=== PATIENT | female | born 1975 | race Two or more races ===

== ENCOUNTER 2024-10-30 12:00 | Inpatient (IN) | payer MEDICAID, OTHER ==
[~2024-10-30] VITALS: Ht 152.4 cm; Wt 56.4 kg
--- NOTE | 2024-10-30 12:30 | ED.PDOC ---
GI ASSESSMENT HPI Comments 49 y/o F, presents to the ED for CC of blood in stool. Patient states, she has been experiencing blood in stool with associated pain upon having a bowel movement x2days. Patient reports, stool to be bright red in color. Patient denies abdominal pain, nausea, vomiting, fever, chills, or fatigue. No other associated symptoms, modifiers, recent injuries or sick contacts present at this time. 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 PROGRAM ADMINISTRATOR History: Denies all WELLNESS PROGRAM ADMINISTRATOR Hx Family History Family History: Unknown Social History Smoker: Non-Smoker Alcohol: Denies ETOH Use Drugs: Denies Drug Use Lives In: Home Constitutional: denies: chills, diaphoresis, fatigue, fever, malaise, sweats, weakness, others EENTM: denies: blurred vision, double vision, ear bleeding, ear discharge, ear drainage, ear pain, ear ringing, eye pain, eye redness, hearing loss, mouth pain, mouth swelling, nasal discharge, nose bleeding, nose congestion, nose pain, photophobia, tearing, throat pain, throat swelling, voice changes, others Respiratory: denies: cough, hemoptysis, orthopnea, SOB at rest, shortness of breath, SOB with excertion, stridor, wheezing, others Cardiovascular: denies: chest pain, dizzy spells, diaphoresis, Dyspnea on exertion, edema, irregular heart beat, left arm pain, lightheadedness, palpitations, PND, syncope, others Gastrointestinal: reports: blood streaked bowels; denies: abdomen distended, abdominal pain, constipated, diarrhea, dysphagia, difficulty swallowing, hematemesis, melena, nausea, poor appetite, poor fluid intake, rectal bleeding, rectal pain, vomiting, others Genitourinary: denies: abnormal vagina bleeding, burning, dyspareunia, dysuria, flank pain, frequency, hematuria, incontinence, pain, , vagina discharge, urgency, others Neurological: denies: dizziness, fainting, headache, left sided numbness, left sided weakness, numbness, paresthesia, pre-existing deficit, right sided numbness, right sided weakness, seizure, speech problems, tingling, tremors, weakness, others Musculoskeletal: denies: back pain, gout, joint pain, joint swelling, muscle pain, muscle stiffness, neck pain, others Integumetry: denies: bruises, change in color, change in hair/nails, dryness, laceration, lesions, lumps, rash, wounds, others Allergic/Immunocompromised: denies: Difficulty Healing, Frequent Infections, Hives, Itching, others Hematologic/Lymphatic: denies: anemia, blood clots, easy bleeding, easy bruising, swollen glands, others Endocrine: denies: excessive hunger, excessive sweating, excessive thirst, excessive urination, flushing, intolerance to cold, intolerance to heat, unexplained weight gain, unexplained weight loss, others Psychiatric: denies: anxiety, bipolar disorder, depression, hopeless, panic disorder, schizophrenia, sleepless, suicidal, others All Other Systems: Reviewed and Negative Physical Exam General Appearance: No Apparent Distress, Normal HEENT: Normal ENT Inspection, Pharynx Normal Neck: Full Range of Motion, Non-Tender, Normal, Normal Inspection Respiratory: Chest Non-Tender, Lungs Clear, No Accessory Muscle Use, No Respiratory Distress, Normal Breath Sounds Cardiovascular: No Edema, No Murmur, No Gallop, Normal Peripheral Pulses, Regular Rate/Rhythm Breast Exam: Deferred Gastrointestinal: No Organomegaly, Non Tender, No Pulsatile Mass, Normal Bowel Sounds, Soft Genitalia: Deferred Pelvic: Deferred Rectal: Deferred Extremities: No calf tenderness, Normal capillary refill, Normal inspection, Normal range of motion, Non-tender, No pedal edema Musculoskeletal : Apperance: Normal Neurologic: Alert, 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 Was a procedure done?: No GI differential Dx Differential Diagnosis: Constipation, Diverticular disease, Inflammatory BD, Other (hemorrhoids) X-Ray, Labs, Meds, VS Vital Signs Date Time Temp Pulse Resp B/P (MAP) Pulse Ox O2 Delivery O2 Flow Rate FiO2 10/30/24 13:35 98.7 68 16 103/63 (76) 99 98.7 10/30/24 13:35 68 16 99 Room Air 10/30/24 12:23 97.8 74 18 135/79 (97) 99 97.8 Lab Test 10/30/24 12:55 Range/Units White Blood Count 6.9 4.4-10.8 10^3/uL Red Blood Count 4.32 4.0-5.20 10^6/uL Hemoglobin 12.6 12.2-16.2 g/dL Hematocrit 37.4 36.0-46.0 % Mean Corpuscular Volume 86.6 80.0-100.0 fL Mean Corpuscular Hemoglobin 29.2 28.0-32.0 pg Mean Corpuscular Hemoglobin Concent 33.7 32.0-36.0 g/dL Red Cell Distribution Width 15.3 H 11.8-14.3 % Platelet Count 256 140-450 10^3/uL Mean Platelet Volume 10.1 6.9-10.8 fL Neutrophils (%) (Auto) 52.1 37.0-80.0 % Lymphocytes (%) (Auto) 40.8 10.0-50.0 % Monocytes (%) (Auto) 5.3 0.0-12.0 % Eosinophils (%) (Auto) 1.6 0.0-7.0 % Basophils (%) (Auto) 0.2 0.0-2.0 % Neutrophils # (Auto) 3.6 1.6-8.6 10 ^3/uL Lymphocytes # (Auto) 2.8 0.4-5.4 10 ^3/uL Monocytes # (Auto) 0.4 0-1.3 10 ^3/uL Eosinophils # (Auto) 0.1 0-0.8 10 ^3/uL Basophils # (Auto) 0 0-0.2 10 ^3/uL Nucleated Red Blood Cells 0.0 % Sodium Level 142 136-145 mmol/L Potassium Level 3.8 3.5-5.1 mmol/L Chloride Level 106 98-107 mmol/L Carbon Dioxide Level 28 20-31 mmol/L Anion Gap 8 5-15 Blood Urea Nitrogen 10 9-23 mg/dL Creatinine 0.87 0.550-1.02 mg/dL Glomerular Filtration Rate Calc 81 >90 mL/min BUN/Creatinine Ratio 11.5 10.0-20.0 Serum Glucose 86 74-106 mg/dL Calcium Level 10.3 8.7-10.4 mg/dL Time of 1ST Reevaluation: 12:50 Reevaluation 1ST: Unchanged Patient Education/Counseling: Diagnosis, Treatment Family Education/Counseling: No Family Present SEPSIS Sepsis Screen Physician Orders Ct Ab Pel With Iv Con Only (10/30/24 16:29) Cefazolin Ancef (10/30/24 18:00) Metronidazole Ivpb Flagyl (10/30/24 18:00) Vital Signs Date Time Temp Pulse Resp B/P (MAP) Pulse Ox O2 Delivery O2 Flow Rate FiO2 10/30/24 13:35 98.7 68 16 103/63 (76) 99 98.7 10/30/24 13:35 68 16 99 Room Air 10/30/24 12:23 97.8 74 18 135/79 (97) 99 97.8 Laboratory Tests Test 10/30/24 12:55 White Blood Count 6.9 10^3/uL (4.4-10.8) Departure 1 Departure Time of Disposition: 17:49 (Patient with bright red blood per rectum and CT scan concerning for proctocolitis. We will empirically cover patient with antibiotics admit patient further workup) Impression: Primary Impression: Bright red blood per rectum Additional Impression: Colitis Disposition: ADMITTED INPATIENT Admit to: Med Surg Condition: Serious Critical Care Note Critical Care Time?: No Stability Stability form required: No Heart Score Heart Score: Heart Score Response (Comments) Value History N/A 0 EKG N/A 0 Age N/A 0 Risk Factors N/A 0 Troponin N/A 0 Total 0 I personally scribed for RONNIE ETIENNE MD ([email or web address]) on 10/30/24 at 12:30. Electronically submitted by Tamanna Vera ([email or web address]). RONNIE ETIENNE MD Oct 30, 2024 12:30
[2024-10-30 13:15] LABS: Hematocrit 37.4 % (36.0-46.0); Hemoglobin 12.6 g/dL (12.2-16.2); Mean Corpuscular Hemoglobin 29.2 pg (28.0-32.0); Mean Corpuscular Volume 86.6 fL (80.0-100.0); Nucleated Red Blood Cells % 0.0 %
[2024-10-30 13:27] LABS: Chloride 106 mmol/L (98-107); Potassium 3.8 mmol/L (3.5-5.1); Sodium 142 mmol/L (136-145)
[2024-10-30 13:28] LABS: Anion Gap 8 (5-15); Calcium 10.3 mg/dL (8.7-10.4); Carbon Dioxide 28 mmol/L (20-31)
[2024-10-30 13:33] LABS: BUN/Creatinine Ratio 11.5 (10.0-20.0); Blood Urea Nitrogen 10 mg/dL (9-23); Glucose 86 mg/dL (74-106)
[2024-10-30] MEDS: SODIUM CHLORIDE 0.9% 1,000 ML IV ONE (16:30)
[2024-10-30] MEDS: IOHEXOL 300 MG/ML 100ML BOTTLE IJ ONE (16:41)
--- NOTE | 2024-10-30 17:14 | DVH ---
Indication: brbpr Technique: CT axial images of the abdomen and pelvis are obtained with intravenous contrast. Coronal and sagittal reformats were obtained. Radiation Dose Information: CTDI volume is 6 mGy mGy. Dose-length product is 277.53 mGy.cm mGy*cm Comparison: None FINDINGS: Lung bases demonstrate no pleural effusion. Adrenal glands, spleen unremarkable. Pancreatic calcifications. 2 cm left hepatic lobe cyst. Hepati c steatosis. Cholelithiasis. 1 cm left renal cyst. 1 cm right renal cysts. No hydronephrosis. Stomach partially distended. Small bowel loops are normal in caliber. Moderate volume stool in the colon. Colonic diverticula. No secondary signs for appendicitis. Rectal /anal wall thickening /hyperemia. Abdominal aorta normal in caliber. Bladder is partially distended. No free pelvic fluid. No inguinal lymphadenopathy. [id number] bilateral sacroiliac degenerative joint disease. There is mild thoracolumbar degener ative disc disease. IMPRESSION: Rectal/anal wall thickening / hyperemia, may represent proctocolitis. Recommend GI consultation to ex clude underlying lesion Colonic diverticular disease. Cholelithiasis. Hepatic steatosis. Other findings as described.
[2024-10-30] MEDS: ceFAZolin 2 GM/D5W50ml 50 ML IV ONE (18:40)
[2024-10-30] MEDS ORDERED: ACETAMINOPHEN 325 MG TAB PO PRN (19:30)
[2024-10-30] MEDS ORDERED: ONDANSETRON HCL 4 MG/2 ML VIAL IV PRN (19:30)
[2024-10-30] MEDS ORDERED: HYDROcodone-ACET 5/325MG TAB PO PRN (19:30)
[2024-10-30] MEDS: PANTOPRAZOLE 40 MG/10 ML VIAL INJ IV ONE (19:59)
--- NOTE | 2024-10-30 21:48 | DVHHP2 ---
History of Present Illness Reason for Visit: Rectal bleeding History of Present Illness 49-year-old female presents for evaluation of rectal bleeding. Patient endorses a two day history of noticing abhinav blood mixed with her stool. Denies dizziness. No history of hemorrhoids. No abdominal pain, nausea or vomiting. No other acute symptoms. Past Medical History Denies Past Surgical History Hysterectomy, Family History Noncontributory Smoke: No ALCOHOL: none Drugs: None Lives: with Family Review of Systems Review of Systems Review of systems are currently negative otherwise addressed in HPI. Allergies: Coded Allergies: NO KNOWN ALLERGIES (Unverified , 10/30/24) Medications Current Medications Medications Dose Ordered Sig/Shelton Route Start Time Stop Time Status Last Admin Dose Admin Ceftriaxone Sodium 50 ml @ 100 mls/hr DAILY@09 IV 10/31/24 09:00 Metronidazole 100 ml @ 100 mls/hr Q8H IV 10/31/24 02:00 Pantoprazole Sodium 40 mg DAILY IV 10/31/24 10:00 Acetaminophen/ Hydrocodone Bitart 1 tab Q4HP PRN PO 10/30/24 19:30 Ondansetron HCl 4 mg Q4HP PRN IV 10/30/24 19:30 Acetaminophen 650 mg Q6HP PRN PO 10/30/24 19:30 Exam Vital Signs Vital Signs Date Time Temp Pulse Resp B/P (MAP) Pulse Ox O2 Delivery O2 Flow Rate FiO2 10/30/24 13:35 98.7 68 16 103/63 (76) 99 98.7 10/30/24 13:35 Room Air Exam Gen: 49-year-old female in mild distress Skin: Warm, dry, normal color and texture, no rash. HEENT: Normocephalic atraumatic, mucous membranes moist and pink. Neck: Cervical and supraclavicular nodes normal without enlargement, trachea is midline, thyroid gland is normal without masses. Pulmonary: Clear to auscultation and percussion bilaterally. Cardiac: Regular rate and rhythm. No murmur Abdomen: Soft, nontender, nondistended, bowel sounds present all 4 quadrants, no guarding, no rigidity, no organomegaly. Extremities: No cyanosis, clubbing, no edema Neuro: Cranial nerves II through XII grossly intact, normal affect and speech, no focal motor deficits. Labs/Xrays ORDERING PHYSICIAN: RONNIE ETIENNE MD PROCEDURE(s): ABPLIV - CT AB PEL WITH IV CON ONLY REASON: brbpr ORDER NUMBER(s): [id number], ACCESSION NUMBER(s): [id number] Indication: brbpr Technique: CT axial images of the abdomen and pelvis are obtained with intravenous contrast. Coronal and sagittal reformats were obtained. Radiation Dose Information: CTDI volume is 6 mGy mGy. Dose-length product is 277.53 mGy.cm mGy*cm Comparison: None FINDINGS: Lung bases demonstrate no pleural effusion. Adrenal glands, spleen unremarkable. Pancreatic calcifications. 2 cm left hepatic lobe cyst. Hepatic steatosis. Cholelithiasis. 1 cm left renal cyst. 1 cm right renal cysts. No hydronephrosis. Stomach partially distended. Small bowel loops are normal in caliber. Moderate volume stool in the colon. Colonic diverticula. No secondary signs for appendicitis. Rectal/anal wall thickening /hyperemia. Abdominal aorta normal in caliber. Bladder is partially distended. No free pelvic fluid. No inguinal lymphadenopathy. [id number]-[id number] bilateral sacroiliac degenerative joint disease. There is mild thoracolumbar degenerative disc disease. IMPRESSION: Rectal/anal wall thickening / hyperemia, may represent proctocolitis. Recommend GI consultation to exclude underlying lesion Colonic diverticular disease. Cholelithiasis. Hepatic steatosis. Other findings as described. Labs Test 10/30/24 20:48 10/30/24 12:55 Range/Units White Blood Count 6.9 4.4-10.8 10^3/uL Red Blood Count 4.32 4.0-5.20 10^6/uL Hemoglobin 12.6 12.2-16.2 g/dL Hematocrit 37.4 36.0-46.0 % Mean Corpuscular Volume 86.6 80.0-100.0 fL Mean Corpuscular Hemoglobin 29.2 28.0-32.0 pg Mean Corpuscular Hemoglobin Concent 33.7 32.0-36.0 g/dL Red Cell Distribution Width 15.3 H 11.8-14.3 % Platelet Count 256 140-450 10^3/uL Mean Platelet Volume 10.1 6.9-10.8 fL Neutrophils (%) (Auto) 52.1 37.0-80.0 % Lymphocytes (%) (Auto) 40.8 10.0-50.0 % Monocytes (%) (Auto) 5.3 0.0-12.0 % Eosinophils (%) (Auto) 1.6 0.0-7.0 % Basophils (%) (Auto) 0.2 0.0-2.0 % Neutrophils # (Auto) 3.6 1.6-8.6 10 ^3/uL Lymphocytes # (Auto) 2.8 0.4-5.4 10 ^3/uL Monocytes # (Auto) 0.4 0-1.3 10 ^3/uL Eosinophils # (Auto) 0.1 0-0.8 10 ^3/uL Basophils # (Auto) 0 0-0.2 10 ^3/uL Nucleated Red Blood Cells 0.0 % Sodium Level 142 136-145 mmol/L Potassium Level 3.8 3.5-5.1 mmol/L Chloride Level 106 98-107 mmol/L Carbon Dioxide Level 28 20-31 mmol/L Anion Gap 8 5-15 Blood Urea Nitrogen 10 9-23 mg/dL Creatinine 0.87 0.550-1.02 mg/dL Glomerular Filtration Rate Calc 81 >90 mL/min BUN/Creatinine Ratio 11.5 10.0-20.0 Serum Glucose 86 74-106 mg/dL Calcium Level 10.3 8.7-10.4 mg/dL SEPSIS Sepsis Screen Date sepsis recognized/suspect: Oct 30, 2024 Time Sepsis recognized/suspect: 1220 Recent Procedure: No On Antibiotic Therapy: No Respiratory Rate >20: No Heart Rate >90: No Temp<36 C (96.8 F) or >38.3 C: No SBP <90 or MAP <65 mmHG: No New Acute Mental Status Change: No Is the patient on CPAP, BIPAP,: No Physician Orders Ct Ab Pel With Iv Con Only (10/30/24 16:29) * Gi Dvh Ui Software Developer (10/30/24 19:16) Ceftriaxone 1gm/50ml D5w (Rocephin) (10/31/24 09:00) Basic Metabolic Panel (10/31/24 04:00) Pantoprazole (Protonix) (10/31/24 10:00) Stool Occult Blood (10/30/24 19:16) Admit (10/30/24 19:16) Hydrocodone-Acet 5/325mg Tab ([place] 5/32 (10/30/24 19:30) Ondansetron Hcl (Zofran) (10/30/24 19:30) Complete Blood Count (10/31/24 04:00) Condition: Stable (10/30/24 19:16) Acetaminophen Tablet (Tylenol Tablet) (10/30/24 19:30) Clear Liq Diet (10/31/24 Breakfast) Bedrest With Bathroom Privileg (10/30/24 19:16) Metronidazole 500mg/100ml (Flagyl 500mg/ (10/31/24 02:00) Laboratory Tests Test 10/30/24 12:55 White Blood Count 6.9 10^3/uL (4.4-10.8) Medications Medications Dose Ordered Sig/Shelton Route Start Time Stop Time Status Last Admin Dose Admin Cefazolin Sodium/ Dextrose 50 ml @ 50 mls/hr ONCE ONCE IV 10/30/24 18:00 10/30/24 18:59 DC 10/30/24 18:40 50 MLS/HR Metronidazole 100 ml @ 100 mls/hr ONCE ONCE IV 10/30/24 18:00 10/30/24 18:59 DC 10/30/24 18:48 100 MLS/HR Pantoprazole Sodium 40 mg ONCE ONCE IV 10/30/24 19:30 10/30/24 19:31 DC 10/30/24 19:59 40 MG Sodium Chloride 1,000 ml @ 1,000 mls/hr Q1H ONCE IV 10/30/24 16:30 10/30/24 17:29 DC 10/30/24 16:30 1,000 MLS/HR Assessment/Plan Assessment/Plan Assessment Rectal bleeding Questionable hyperactive colitis Plan Admit the patient to Med surge to the hospitalist Rocephin/Flagyl Clear liquid diet GI consultation Pain management Continue treatment per orders. Plan discussed with: Patient My Orders Orders - KONSTANTIN HUSSEIN Procedure Category Date Status Time * Gi Dvh Ui Software Developer CONS 10/30/24 Transmitted 19:16 Ceftriaxone 1gm/50ml PHA 10/31/24 In Process D5w (Rocephin) 09:00 Basic Metabolic Panel LAB 10/31/24 Verified 04:00 Pantoprazole PHA 7/29/25 In Process (Protonix) 10:00 Stool Occult Blood LAB 10/30/24 In Process 19:16 Admit ADMIT 10/30/24 Transmitted 19:16 Hydrocodone-Acet PHA 10/30/24 In Process 5/325mg Tab ([place] 19:30 Ondansetron Hcl PHA 10/30/24 In Process (Zofran) 19:30 Complete Blood Count LAB 10/31/24 Verified 04:00 Condition: Stable ARACELY 10/30/24 In Process 19:16 Acetaminophen Tablet PHA 10/30/24 In Process (Tylenol Tablet) 19:30 Clear Liq Diet DIET 10/31/24 Transmitted Breakfast Bedrest With Bathroom ARACELY 10/30/24 In Process Privileg 19:16 Metronidazole PHA 10/31/24 In Process 500mg/100ml (Flagyl 02:00 Date of Service: Oct 30, 2024 Billing Provider: KONSTANTIN HUSSEIN Common Visit Codes: [id number] INP/OBS CARE (MOD) KONSTANTIN HUSSEIN Oct 30, 2024 21:48
[2024-10-30 22:00] VITALS: BP 110/59; PULSE 61; RESP 17; TEMP 97.7; O2SAT 94
[2024-10-31] VITALS (7 sets, daily range): BP systolic 100–126; BP diastolic 43–69; PULSE 57–98; RESP 16–18; TEMP 97.5–98.7; O2SAT 93–98
[2024-10-31 05:41] LABS: Hematocrit 34.3 % (36.0-46.0); Hemoglobin 11.5 g/dL (12.2-16.2); Mean Corpuscular Hemoglobin 28.9 pg (28.0-32.0); Mean Corpuscular Volume 86.5 fL (80.0-100.0); Nucleated Red Blood Cells % 0.1 %
[2024-10-31 06:02] LABS: Anion Gap 8 (5-15); Calcium 8.7 mg/dL (8.7-10.4); Carbon Dioxide 26 mmol/L (20-31); Potassium 3.8 mmol/L (3.5-5.1); Sodium 142 mmol/L (136-145)
[2024-10-31 06:08] LABS: BUN/Creatinine Ratio 10.8 (10.0-20.0); Glucose 85 mg/dL (74-106)
[2024-10-31 06:12] LABS: Blood Urea Nitrogen 9 mg/dL (9-23); Chloride 108 mmol/L (98-107)
[2024-10-31] MEDS: cefTRIAXone 1GM/50ML D5W 50 ML IV SCH (08:32)
[2024-10-31] MEDS: PANTOPRAZOLE 40 MG/10 ML VIAL INJ IV SCH (10:00)
--- NOTE | 2024-10-31 11:05 | DVHPN2 ---
Subjective Still complaining of rectal bleed Reviewed: Care Plan, H&P, Labs, Medications, Previous Orders, Radiology Changes from previous H/P or p: No Changes Objective Vitals Vital Signs Date Time Temp Pulse Resp B/P (MAP) Pulse Ox O2 Delivery O2 Flow Rate FiO2 10/31/24 05:00 98.2 64 16 126/60 (82) 95 98.2 10/30/24 13:35 Room Air Intake/Output Intake and Output 10/31/24 07:00 Intake Total 100 ml Balance 100 ml Intake IV Total 100 ml General Appearance: Alert, Oriented X3, Cooperative, No acute distress HEENT: Atraumatic Lungs: Clear to auscultation, Normal air movement Cardiovascular: Regular rate, Normal S1, Normal S2 Abdomen: Normal bowel sounds, Soft, No tenderness, No masses Rectal: Other (Patient refused to be examined at this time) Extremities: No edema Neuro: Normal speech, Cranial nerves 3-12 NL Psych/Mental Status: Mental status NL, Mood NL Medications Current Medications Medications Dose Ordered Sig/Shelton Route Start Time Stop Time Status Last Admin Dose Admin Ceftriaxone Sodium 50 ml @ 100 mls/hr DAILY@09 IV 10/31/24 09:00 10/31/24 08:32 100 MLS/HR Metronidazole 100 ml @ 100 mls/hr Q8H IV 10/31/24 02:00 10/31/24 02:16 100 MLS/HR Pantoprazole Sodium 40 mg DAILY IV 10/31/24 10:00 Acetaminophen/ Hydrocodone Bitart 1 tab Q4HP PRN PO 10/30/24 19:30 Ondansetron HCl 4 mg Q4HP PRN IV 10/30/24 19:30 Acetaminophen 650 mg Q6HP PRN PO 10/30/24 19:30 Laboratory Results Laboratory Tests 10/31/24 04:42 Chemistry Test 10/30/24 12:55 10/31/24 04:42 Calcium Level 10.3 mg/dL (8.7-10.4) 8.7 mg/dL (8.7-10.4) Labs and/or images reviewed: Labs reviewed by me, Image(s) reviewed by me Assessment/Plan Assessment/Plan A 49-year-old female patient; with no known past medical history; who presented to emergency department with rectal bleed. # Hematochezia # Normocytic anemia; most likely due to blood loss # Proctocolitis # Overweight To keep NPO until evaluation by GI Reviewed lab work and imaging studies Continue IV fluids Continue IV antibiotics Counseled the patient on the importance of adopting healthy lifestyle with diet and exercise in order to lose weight Continue monitoring Goals of care discussed with the patient for 20 minutes; full code Late Entry. This medical document was created using an electronic medical record system with computerized dictation system. Although this document has been carefully reviewed, there might still be some phonetic and typographical errors. These areas are purely typographical due to imperfections of the software programs, and do not reflect any compromise in the patient's medical care. Plan discussed with: Patient, Other (Nurse) Date of Service: Oct 31, 2024 Billing Provider: IVETTE TOUSSAINT MD Common Visit Codes: 41897-[id number] INP/OBS CARE(HIGH) Secondary Visit Codes: [id number] CARE PLAN 30 MINUTES (20 minutes) IVETTE TOUSSAINT MD Oct 31, 2024 11:05
--- NOTE | 2024-10-31 14:04 | DVHINCON2 ---
GI Consult Consult Note GI consult note Date of Consultation: 10/31/2024 Chief Complaint: Proctocolitis Referring Physician: Corey MOLINA H&P: 49-year-old female admitted to the hospital for rectal bleeding. Patient denies any abdominal pain. Patient had red blood after bowel movement, 2-3 days ago. Patient admits to having a history of constipation, and on and off has hard stool. Patient has noticed rectal pain when straining with bowel movement. Possible hemorrhoids. Denies melena. No colonoscopy in past. Denies blood thinners Past Medical History: Denies Past Surgical History: Hysterectomy, Social History: NO smoking, drinking ETOH and use of illegal drugs. Family History: Noncontributory Review of Systems: Constitutional: no fever, chill, weight loss HEENT: no eye pain, no hearing loss, no oral lesion, no scleral icterus Heart: no chest pain, no chest pressure Lung: no cough, no dyspnea with exertion Abdomen: see HPI Physical exam: General: NAD, AAOX3 Chest: lung wright clear to auscultation Heart: RRR, no murmur Abdomen: non-distended, no tenderness to palpation, +BS Labs: Labs Test 10/31/24 04:42 10/30/24 20:48 Range/Units White Blood Count 6.0 4.4-10.8 10^3/uL Red Blood Count 3.96 L 4.0-5.20 10^6/uL Hemoglobin 11.5 L 12.2-16.2 g/dL Hematocrit 34.3 L 36.0-46.0 % Mean Corpuscular Volume 86.5 80.0-100.0 fL Mean Corpuscular Hemoglobin 28.9 28.0-32.0 pg Mean Corpuscular Hemoglobin Concent 33.5 32.0-36.0 g/dL Red Cell Distribution Width 15.3 H 11.8-14.3 % Platelet Count 230 140-450 10^3/uL Mean Platelet Volume 10.6 6.9-10.8 fL Neutrophils (%) (Auto) 52.5 37.0-80.0 % Lymphocytes (%) (Auto) 40.1 10.0-50.0 % Monocytes (%) (Auto) 5.6 0.0-12.0 % Eosinophils (%) (Auto) 1.5 0.0-7.0 % Basophils (%) (Auto) 0.3 0.0-2.0 % Neutrophils # (Auto) 3.2 1.6-8.6 10 ^3/uL Lymphocytes # (Auto) 2.4 0.4-5.4 10 ^3/uL Monocytes # (Auto) 0.3 0-1.3 10 ^3/uL Eosinophils # (Auto) 0.1 0-0.8 10 ^3/uL Basophils # (Auto) 0 0-0.2 10 ^3/uL Nucleated Red Blood Cells 0.1 % Sodium Level 142 136-145 mmol/L Potassium Level 3.8 3.5-5.1 mmol/L Chloride Level 108 H 98-107 mmol/L Carbon Dioxide Level 26 20-31 mmol/L Anion Gap 8 5-15 Blood Urea Nitrogen 9 9-23 mg/dL Creatinine 0.83 0.550-1.02 mg/dL Glomerular Filtration Rate Calc 85 >90 mL/min BUN/Creatinine Ratio 10.8 10.0-20.0 Serum Glucose 85 74-106 mg/dL Calcium Level 8.7 8.7-10.4 mg/dL Stool Occult Blood Negative Negative Stool Occult Blood Sample #3 Negative Imaging: CT abdomen pelvis IMPRESSION: Rectal/anal wall thickening / hyperemia, may represent proctocolitis. Recommend GI consultation to exclude underlying lesion Colonic diverticular disease. Cholelithiasis. Hepatic steatosis. Other findings as described. Assessment: Hematochezia Proctocolitis Plan: Discussed with Dr. Cortez - Pt will be scheduled for colonoscopy tomorrow 11/01/2024. Pt was informed of the risks (bleeding, infection, perforation, reaction to sedation medications and cardiopulmonary arrest) and benefit and is agreeable to undergo the procedures. Tonja Discussed plan with patient and RN Thank you for this consult Date of Service: Oct 31, 2024 Billing Provider: ROLA FRANKS Common Visit Codes: CONSULT ONLY Consultation Codes: [id number] CONSULT <60MIN ROLA FRANKS Oct 31, 2024 14:04
[2024-10-31] MEDS: GOLYTELY 4L KIT PO ONE (15:32)
[2024-10-31] MEDS: MAGNESIUM CITRATE SOLUTION 300 ML BTL PO ONE (18:56)
[2024-10-31] MEDS: POLYETHYLENE GLYCOL 17 GM PWDR PO SCH (21:27)
[2024-11-01] VITALS (9 sets, daily range): BP systolic 87–113; BP diastolic 53–69; PULSE 56–84; RESP 14–18; TEMP 96.9–98; O2SAT 93–100
[2024-11-01] MEDS: MAGNESIUM CITRATE SOLUTION 300 ML BTL PO ONE (05:16)
[2024-11-01] MEDS: GOLYTELY 4L KIT PO ONE (05:16)
[2024-11-01 08:27] LABS: Hematocrit 36.3 % (36.0-46.0); Hemoglobin 12.1 g/dL (12.2-16.2); Mean Corpuscular Hemoglobin 28.9 pg (28.0-32.0); Mean Corpuscular Volume 86.8 fL (80.0-100.0); Nucleated Red Blood Cells % 0.0 %
[2024-11-01 08:42] LABS: INR 1.06 (0.9-1.15); Prothrombin Time 11.2 sec (9.3-11.8)
[2024-11-01 08:44] LABS: Albumin 4.4 g/dL (3.2-4.8); Alkaline Phosphatase 108 U/L (46-116); Anion Gap 8 (5-15); BUN/Creatinine Ratio 8.2 (10.0-20.0); Calcium 10.1 mg/dL (8.7-10.4); Carbon Dioxide 28 mmol/L (20-31); Glucose 89 mg/dL (74-106); Potassium 4.2 mmol/L (3.5-5.1); Sodium 144 mmol/L (136-145); Total Protein 7.6 g/dL (5.7-8.2)
[2024-11-01 08:45] LABS: Bilirubin, Total 0.6 mg/dL (0.2-1.0)
[2024-11-01 08:46] LABS: Alanine Aminotransferase 9 U/L (7-40); Blood Urea Nitrogen 8 mg/dL (9-23); Chloride 108 mmol/L (98-107)
--- NOTE | 2024-11-01 09:31 | DVHPN2 ---
Subjective Just came out from colonoscopy and did not share any complaints Reviewed: Care Plan, H&P, Labs, Medications, Previous Orders, Radiology, Other (Consultation) Changes from previous H/P or p: Changes Objective Vitals Vital Signs Date Time Temp Pulse Resp B/P (MAP) Pulse Ox O2 Delivery O2 Flow Rate FiO2 11/01/24 07:30 56 16 93 Room Air* 0 21 11/01/24 05:00 98.0 87/53 (64) 98.0 Intake/Output Intake and Output 11/01/24 07:00 Intake Total 1000 ml Balance 1000 ml Intake Oral 800 ml IV Total 200 ml # Voids 6 # Bowel Movements 2 General Appearance: Alert, Oriented X3, Cooperative, No acute distress HEENT: Atraumatic Lungs: Clear to auscultation, Normal air movement Cardiovascular: Regular rate, Normal S1, Normal S2 Abdomen: Normal bowel sounds, Soft, No tenderness, No masses Rectal: Other (Patient refused to be examined at this time) Extremities: No edema Neuro: Normal speech, Cranial nerves 3-12 NL Psych/Mental Status: Mental status NL, Mood NL Medications Current Medications Medications Dose Ordered Sig/S[place] Route Start Time Stop Time Status Last Admin Dose Admin Ceftriaxone Sodium 50 ml @ 100 mls/hr DAILY@09 IV 10/31/24 09:00 11/01/24 08:26 100 MLS/HR Metronidazole 100 ml @ 100 mls/hr Q8H IV 10/31/24 02:00 11/01/24 09:03 100 MLS/HR Pantoprazole Sodium 40 mg DAILY IV 10/31/24 10:00 11/01/24 09:03 40 MG Acetaminophen/ Hydrocodone Bitart 1 tab Q4HP PRN PO 10/30/24 19:30 Ondansetron HCl 4 mg Q4HP PRN IV 10/30/24 19:30 Acetaminophen 650 mg Q6HP PRN PO 10/30/24 19:30 Polyethylene Glycol 17 gm DAILY PO 10/31/24 22:00 10/31/24 21:27 17 GM Laboratory Results Laboratory Tests 11/01/24 07:46 Chemistry Test 11/01/24 07:46 Albumin 4.4 g/dL (3.2-4.8) Calcium Level 10.1 mg/dL (8.7-10.4) Total Protein 7.6 g/dL (5.7-8.2) Coagulation Test 11/01/24 07:46 Prothrombin Time 11.2 sec (9.3-11.8) Prothrombin Time INR 1.06 (0.9-1.15) LFT Test 11/01/24 07:46 Alanine Aminotransferase (ALT) 9 U/L (7-40) Alkaline Phosphatase 108 U/L (46-116) Aspartate Amino Transferase (AST) 20 U/L (13-40) Total Bilirubin 0.6 mg/dL (0.2-1.0) Labs and/or images reviewed: Labs reviewed by me, Image(s) reviewed by me Assessment/Plan Assessment/Plan A 49-year-old female patient; with no known past medical history; who presented to emergency department with rectal bleed. # Hematochezia; status post colonoscopy on October 15, 2024; most likely due to internal hemorrhoids # Normocytic anemia; most likely due to blood loss # Proctocolitis; ruled out by colonoscopy; rectal biopsies obtained; grossly normal colon examination up to the cecum and terminal ileum # Bwig-zi-ogefqmum tortuosity of the colon; no active bleed # Overweight To advance diet as tolerated Reviewed lab work and imaging studies Continue IV fluids Continue IV antibiotics for now Counseled the patient on the importance of adopting healthy lifestyle with diet and exercise in order to lose weight GI is following Continue monitoring To discharge tomorrow hemoglobin level is stable Late Entry. This medical document was created using an electronic medical record system with computerized dictation system. Although this document has been carefully reviewed, there might still be some phonetic and typographical errors. These areas are purely typographical due to imperfections of the software programs, and do not reflect any compromise in the patient's medical care. Plan discussed with: Patient, Other (Nurse) My Orders Orders - IVETTE TOUSSAINT MD Procedure Category Date Status Time * [facility] [employer] CONS 10/31/24 Transmitted 11:17 Basic Metabolic Panel LAB 11/02/24 Verified 04:00 Complete Blood Count LAB 11/02/24 Verified 04:00 Code Status CODE 11/01/24 Transmitted 09:25 Date of Service: Nov 01, 2024 Billing Provider: IVETTE TOUSSIANT MD Common Visit Codes: [id number] INP/OBS CARE(HIGH) IVETTE TOUSSAINT MD Nov 01, 2024 09:31
[2024-11-01] MEDS ORDERED: PROPOFOL 10 MG/ML 20 ML IV ONE ×2 (12:26→12:38)
[2024-11-01] MEDS ORDERED: LIDOCAINE 1% INJ PF 5ML AMP ONE (12:26)
--- NOTE | 2024-11-01 12:58 | DVHOP2 ---
Operative Report DATE OF OPERATION: 11/01/24 PROCEDURE: Colonoscopy with cold biopsy. PREOPERATIVE INDICATION: The patient is a 49 -year-old female undergoing colonoscopy for abnormal finding GI tract imaging suggestive of proctitis POSTOPERATIVE DIAGNOSES: 1. Iugq-aw-lmtsbcde tortuosity of the colon; no active bleed 2. No significant proctitis or proctocolitis was noted, rectal biopsies were obtained; trace internal hemorrhoids 3. Somewhat limited study due to poor prep however after careful irrigation aspiration was grossly normal examination up to the cecum and terminal ileum PROCEDURE PERFORMED BY: Elizabeth Cortez M.D. SCOPE: Olympus videocolonoscope. ASA CLASS: 2. PREOPERATIVE MEDICATIONS: Mac sedation, Sylvester Gomez PROCEDURE IN DETAIL: After obtaining an informed consent, the patient was placed on left lateral decubitus position. She was then sedated with the above medications. A rectal examination was performed that was normal. The colonoscope was then passed through the anus into the rectosigmoid and through the descending, transverse, and ascending colon up to the cecum with visualization of the appendiceal orifice, base of the cecum and the ileocecal valve. The colonoscope was then withdrawn. The distal 10 cm of the terminal ileum were normal No polyps or masses were seen. There was no colitis or diverticular disease. The study was somewhat limited due to poor prep however after careful irrigation aspiration no gross lesions were seen In the rectosigmoid there was no significant proctitis and there was no active bleeding. On retroflexion patient had trace internal hemorrhoids. Rectal biopsies were obtained.The patient tolerated the procedure well without difficulty. WITHDRAWAL TIME: 9 minutes QUALITY OF THE PREP: [place] Bowel Prep score: 7. COMPLICATIONS : None SPECIMENS: Rectal biopsies DISPOSITION: Transfer back to the floor Stable PLAN: 1. Repeat colonoscopy based on biopsy results likely in 10 years 2. Increase fluid and fiber intake, stool softeners like Colace 3. Local anorectal hemorrhoidal care 4. Advance diet as tolerated 5. Outpatient follow up with me in 4-6 weeks to review results and discuss further management ELIZABETH CORTEZ MD Nov 01, 2024 12:58
[2024-11-01] MEDS ORDERED: ACETAMINOPHEN 325 MG TAB PO PRN (19:15)
[2024-11-01] MEDS: IBUPROFEN 100MG/5ML ORAL SUSP 100 MG/5 ML UD PO PRN (20:52)
[2024-11-02] VITALS (8 sets, daily range): BP systolic 90–112; BP diastolic 51–72; PULSE 61–80; RESP 16–18; TEMP 36.3; O2SAT 93–99
[2024-11-02 05:50] LABS: Hematocrit 33.6 % (36.0-46.0); Hemoglobin 11.1 g/dL (12.2-16.2); Mean Corpuscular Hemoglobin 28.3 pg (28.0-32.0); Mean Corpuscular Volume 85.9 fL (80.0-100.0); Nucleated Red Blood Cells % 0.0 %
[2024-11-02 06:11] LABS: Anion Gap 9 (5-15); Carbon Dioxide 24 mmol/L (20-31); Potassium 3.6 mmol/L (3.5-5.1); Sodium 143 mmol/L (136-145)
[2024-11-02 06:15] LABS: Calcium 8.5 mg/dL (8.7-10.4); Chloride 110 mmol/L (98-107)
[2024-11-02 06:17] LABS: Glucose 101 mg/dL (74-106)
[2024-11-02 06:18] LABS: BUN/Creatinine Ratio 14.1 (10.0-20.0); Blood Urea Nitrogen 12 mg/dL (9-23)
--- NOTE | 2024-11-02 09:12 | DVHPN2 ---
Subjective No more rectal bleed; did not share any complaints; feeling ready to go home as per patient Reviewed: Care Plan, H&P, Labs, Medications, Previous Orders, Radiology, Other (Consultation) Changes from previous H/P or p: Changes Objective Vitals Vital Signs Date Time Temp Pulse Resp B/P (MAP) Pulse Ox O2 Delivery O2 Flow Rate FiO2 11/02/24 08:39 98.1 72 17 103/54 (70) 99 98.1 11/02/24 08:16 Room Air* 0 21 Intake/Output Intake and Output 11/02/24 07:00 Intake Total 1250 ml Balance 1250 ml Intake Oral 800 ml IV Total 450 ml # Voids 4 # Bowel Movements 2 General Appearance: Alert, Oriented X3, Cooperative, No acute distress HEENT: Atraumatic Lungs: Clear to auscultation, Normal air movement Cardiovascular: Regular rate, Normal S1, Normal S2 Abdomen: Normal bowel sounds, Soft, No tenderness, No masses Rectal: Other (Patient refused to be examined at this time) Extremities: No edema Neuro: Normal speech, Cranial nerves 3-12 NL Psych/Mental Status: Mental status NL, Mood NL Medications Current Medications Medications Dose Ordered Sig/Shelton Route Start Time Stop Time Status Last Admin Dose Admin Ceftriaxone Sodium 50 ml @ 100 mls/hr DAILY@09 IV 10/31/24 09:00 11/01/24 08:26 100 MLS/HR Metronidazole 100 ml @ 100 mls/hr Q8H IV 10/31/24 02:00 11/02/24 03:19 100 MLS/HR Pantoprazole Sodium 40 mg DAILY IV 10/31/24 10:00 11/01/24 09:03 40 MG Acetaminophen/ Hydrocodone Bitart 1 tab Q4HP PRN PO 10/30/24 19:30 Ondansetron HCl 4 mg Q4HP PRN IV 10/30/24 19:30 Polyethylene Glycol 17 gm DAILY PO 10/31/24 22:00 10/31/24 21:27 17 GM Ibuprofen 400 mg Q8HPRN PRN PO 11/01/24 19:00 11/01/24 20:52 400 MG Acetaminophen 650 mg Q6HP PRN PO 11/01/24 19:15 Laboratory Results Laboratory Tests 11/02/24 05:25 Chemistry Test 11/02/24 05:25 Calcium Level 8.5 mg/dL (8.7-10.4) L Labs and/or images reviewed: Labs reviewed by me, Image(s) reviewed by me Assessment/Plan Assessment/Plan A 49-year-old female patient; with no known past medical history; who presented to emergency department with rectal bleed. # Hematochezia; status post colonoscopy on November 01, 2024; most likely due to internal hemorrhoids # Normocytic anemia; most likely due to blood loss # Proctocolitis; ruled out by colonoscopy; rectal biopsies obtained; grossly normal colon examination up to the cecum and terminal ileum # Kyhs-sz-zlynecis tortuosity of the colon; no active bleed # Overweight Tolerating well diet Reviewed lab work and imaging studies Was on IV fluids Was on IV antibiotic Counseled the patient on the importance of adopting healthy lifestyle with diet and exercise in order to lose weight Discharged on MiraLax, senna, Dulcolax, and pantoprazole Evaluated by GI as inpatient; to follow up with GI in two weeks for biopsy results To follow up with Dr. Toussaint next Wednesday in discharge clinic Late Entry. This medical document was created using an electronic medical record system with computerized dictation system. Although this document has been carefully reviewed, there might still be some phonetic and typographical errors. These areas are purely typographical due to imperfections of the software programs, and do not reflect any compromise in the patient's medical care. Plan discussed with: Patient, Other (Nurse) My Orders Orders - IVETTE TOUSSAINT MD Procedure Category Date Status Time Code Status CODE 11/01/24 Transmitted 09:25 Electrocardigram EKG 11/02/24 Logged 01:38 Date of Service: Nov 03, 2024 Billing Provider: IVETTE TOUSSAINT MD Common Visit Codes: [id number] INP/OBS CARE(MOD) IVETTE TOUSSAINT MD Nov 02, 2024 09:12
--- NOTE | 2024-11-02 13:43 | ECG ---
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
[2024-11-02] MEDS ORDERED: POLY335015 PO (14:53)
[2024-11-02] MEDS ORDERED: PANT40T PO (14:53)
[2024-11-02] MEDS ORDERED: SENN-62 PO (14:53)
--- NOTE | 2024-11-02 14:56 | DVHDS2 ---
Discharge Summary Date of Admission Oct 30, 2024 at 19:16 Date of Discharge: Nov 02, 2024 Admitting Diagnosis Rectal bleed Labs/Diagnostic Data: Laboratory Results Test 11/02/24 05:25 11/01/24 07:46 10/30/24 20:48 White Blood Count 5.5 10^3/uL (4.4-10.8) Red Blood Count 3.91 10^6/uL (4.0-5.20) Hemoglobin 11.1 g/dL (12.2-16.2) Hematocrit 33.6 % (36.0-46.0) Mean Corpuscular Volume 85.9 fL (80.0-100.0) Mean Corpuscular Hemoglobin 28.3 pg (28.0-32.0) Mean Corpuscular Hemoglobin Concent 33.0 g/dL (32.0-36.0) Red Cell Distribution Width 15.5 % (11.8-14.3) Platelet Count 224 10^3/uL (140-450) Mean Platelet Volume 10.0 fL (6.9-10.8) Neutrophils (%) (Auto) 49.0 % (37.0-80.0) Lymphocytes (%) (Auto) 42.4 % (10.0-50.0) Monocytes (%) (Auto) 6.3 % (0.0-12.0) Eosinophils (%) (Auto) 1.9 % (0.0-7.0) Basophils (%) (Auto) 0.4 % (0.0-2.0) Neutrophils # (Auto) 2.7 10 ^3/uL (1.6-8.6) Lymphocytes # (Auto) 2.4 10 ^3/uL (0.4-5.4) Monocytes # (Auto) 0.4 10 ^3/uL (0-1.3) Eosinophils # (Auto) 0.1 10 ^3/uL (0-0.8) Basophils # (Auto) 0 10 ^3/uL (0-0.2) Nucleated Red Blood Cells 0.0 % Sodium Level 143 mmol/L (136-145) Potassium Level 3.6 mmol/L (3.5-5.1) Chloride Level 110 mmol/L (98-107) Carbon Dioxide Level 24 mmol/L (20-31) Anion Gap 9 (5-15) Blood Urea Nitrogen 12 mg/dL (9-23) Creatinine 0.85 mg/dL (0.550-1.02) Glomerular Filtration Rate Calc 83 mL/min (>90) BUN/Creatinine Ratio 14.1 (10.0-20.0) Serum Glucose 101 mg/dL (74-106) Calcium Level 8.5 mg/dL (8.7-10.4) Prothrombin Time 11.2 sec (9.3-11.8) Prothrombin Time INR 1.06 (0.9-1.15) Total Bilirubin 0.6 mg/dL (0.2-1.0) Aspartate Amino Transferase (AST) 20 U/L (13-40) Alanine Aminotransferase (ALT) 9 U/L (7-40) Alkaline Phosphatase 108 U/L (46-116) Total Protein 7.6 g/dL (5.7-8.2) Albumin 4.4 g/dL (3.2-4.8) Stool Occult Blood Negative (Negative) Stool Occult Blood Sample #3 (Negative) Other Laboratory Tests 11/02/24 05:25 Brief Hx & Hospital Course: A 49-year-old female patient; with no known past medical history; who presented to emergency department with rectal bleed. # Hematochezia; status post colonoscopy on November 01, 2024; most likely due to internal hemorrhoids # Normocytic anemia; most likely due to blood loss; stable hemoglobin level # Proctocolitis; ruled out by colonoscopy; rectal biopsies obtained; grossly normal colon examination up to the cecum and terminal ileum # Ynue-th-eyfaycwc tortuosity of the colon; no active bleed # Overweight Tolerating well diet Reviewed lab work and imaging studies Was on IV fluids Was on IV antibiotic Counseled the patient on the importance of adopting healthy lifestyle with diet and exercise in order to lose weight Discharged on MiraLax, senna, Dulcolax, and pantoprazole Evaluated by GI as inpatient; to follow up with GI in two weeks for biopsy results To follow up with Dr. Toussaint next Wednesday in discharge clinic Late Entry. This medical document was created using an electronic medical record system with computerized dictation system. Although this document has been carefully reviewed, there might still be some phonetic and typographical errors. These areas are purely typographical due to imperfections of the software programs, and do not reflect any compromise in the patient's medical care. Consults/Reason for consult GI for rectal bleed Condition at Discharge: Stable Final Diagnosis/Problems List # Hematochezia; status post colonoscopy on November 01, 2024; most likely due to internal hemorrhoids Rest of diagnoses as above Discharge Disposition: Home Discharge Instruct/Medications Diet: Regular Activity: No Restrictions, As Tolerated Follow Up/Referral: Dr. Toussaint/Dr. Luu at 9 am on Wednesday11/06/2024 at [place] [id number]//Dr. Cortez within 2 weeks Medications: MiraLax//Senna//Dulcolax//Pantoprazole Scheduled Pantoprazole Sodium Sesquihydr (Pantoprazole Sodium), 40 MG PO DAILY@BREAKFAST Polyethylene Glycol 3350 (Miralax), 17 GM PO BID Sennosides-Docusate Sodium (Senokot S), 1 TAB PO BID Discharge Statement: "Patient was advised to return to the ER or call 911 if any headaches, dizziness, shortness of breath, chest pain, abdominal pain, bleeding, fevers, or worsening of medical condition. Patient was counseled about treatment plan, medications, possible side effects, patientverbalized understanding. All questions were answered to the best of my ability. This discharge took greater then 30 minutes in planning, reviewing documentation, counseling the patient, and discussing with other team members." Date of Service: Nov 02, 2024 Billing Provider: IVETTE TOUSSAINT MD Common Visit Codes: [id number]/OBS DISCH DAY >30min IVETTE TOUSSAINT MD Nov 02, 2024 14:56
--- NOTE | 2024-11-02 20:37 | DVHPN2 ---
Progress Note - Dictate Date Seen: Nov 02, 2024 (Late entry Patient seen at 10:00 am) Medical Necessity Reason Pt with a Central, PICC or Fol: No Subjective No new complaints, patient resting comfortably She is tolerating a diet No rectal bleeding today Colonoscopy findings reviewed with patient vital signs Vital Sign Date Time Temp Pulse Resp B/P (MAP) Pulse Ox O2 Delivery O2 Flow Rate FiO2 11/02/24 17:00 98.0 68 17 112/72 (85) 97 98.0 11/02/24 08:16 Room Air* 0 21 Total Intake and Output 11/01/24 11/01/24 11/02/24 15:00 23:00 07:00 Intake Total 250 ml 700 ml 300 ml Balance 250 ml 700 ml 300 ml objective General: NAD, AAOX3 Chest: lung wright clear to auscultation Heart: RRR, no murmur Abdomen: non-distended, no tenderness to palpation, +BS laboratory and microbiology Laboratory Tests 11/02/24 05:25 Test 11/02/24 05:25 Range/Units Serum Glucose 101 74-106 mg/dL Problems(with codes): (1) Abnormal finding on GI tract imaging (2) Bright red blood per rectum (3) Constipation (4) Hemorrhoids Prognosis Plan Advance diet as tolerated Local anorectal hemorrhoidal care Stool softeners increase fluid and fiber Outpatient follow up with GI Services in 4-6 weeks or as needed Plan discussed with: Patient ELIZABETH ELLSWORTH MD Nov 02, 2024 20:37
== END 2024-11-02 17:00 | disposition home or self-care (01) | DRG 254 ==
LOC: ER 12:00 → OVERFLOW 19:16 → WEST WING 10-31 15:16
PROVIDERS: ADMIT Internal Medicine; ATTEND Internal Medicine
PROC: 0DBP8ZX Excision of Rectum, Via Natural or Artificial Opening Endoscopic, Diagnostic (ICD-10-PCS; principal; 2024-11-01 12:27)
DX: K64.8 Other hemorrhoids (principal); K76.0 Fatty (change of) liver, not elsewhere classified; D62 Acute posthemorrhagic anemia; E66.3 Overweight; K80.20 Calculus of gallbladder without cholecystitis without obstruction; Z68.25 Body mass index [BMI] 25.0-25.9, adult; Z90.710 Acquired absence of both cervix and uterus
CPT/HCPCS: 36415; 45380; 74177; 80048; 80053; 82270; 85025; 85610; 93005; 96365; G0378; J2470; J2704; J3490